=== PATIENT | female | born 1985 ===

== ENCOUNTER 2021-07-31 07:46 | Day surgery (SDC) | payer OTHER ==
[2021-07-31] VITALS (8 sets, daily range): BP systolic 120–154; BP diastolic 81–97; PULSE 89–96; TEMP 98.1–98.6
[~2021-07-31] VITALS: Ht 157.5 cm; Wt 125.5 kg
[2021-07-31] MEDS ORDERED: PROZAC 20MG20 MG PO (08:17)
[2021-07-31] MEDS ORDERED: ZITHROMAX500 M2 PO (08:18)
[2021-07-31] MEDS ORDERED: NORCO 325 MG-51 TAB PO (12:18)
--- NOTE | 2021-07-31 13:20 | NUR ---
PT TO BAY 1 PER CART FROM PACU. RECEIVED REPORT FROM [facility]. PT IS RESTING COMFORTABLY. DENIES ANY NEEDS AT THIS TIME. CALL LIGHT WITHIN REACH.
--- NOTE | 2021-07-31 13:35 | NUR ---
PT CONTINUES TO REST COMFORTABLY. DENIES ANY NEEDS AT THIS TIME.
--- NOTE | 2021-07-31 13:50 | NUR ---
PT IS TOLERATING WATER. CONTINUES TO REST COMFORTABLY. DENIES ANY OTHER ADDITIONAL NEEDS AT THIS TIME.
--- NOTE | 2021-07-31 14:05 | NUR ---
PT TOLERATING WATER. AT BEDSIDE. RESTING COMFORTABLY. DENIES ANY ADDITIONAL NEEDS AT THIS TIME.
--- NOTE | 2021-07-31 14:20 | NUR ---
PT CONTINUES TO TOLERATE WATER AND MUFFIN. DENIES ANY NEEDS. WILL CONTINUE TO MONITOR.
--- NOTE | 2021-07-31 14:45 | NUR ---
IV DC'D. TOLERATED WELL.
--- NOTE | 2021-07-31 15:00 | NUR ---
DISCHARGE EDUCATION COMPLETED WITH PT AND HER . VERBALIZED UNDERSTANDING OF HOME AND FOLLOW UP CARE. ALL QUESTIONS ANSWERED. DISCHARGE PAPERWORK GIVEN TO PT.
--- NOTE | 2021-07-31 15:15 | NUR ---
PT OFF UNIT PER WHEELCHAIR. PT DISCHARGE TO HOME WITH PER PERSONAL VEHICLE.
== END 2021-07-31 15:15 | disposition home or self-care (01) ==
LOC: SDCO 07:46
DX: K80.10 Calculus of gallbladder with chronic cholecystitis without obstruction (principal); E66.01 Morbid (severe) obesity due to excess calories; Z68.42 Body mass index [BMI] 45.0-49.9, adult
CPT/HCPCS: J0330; J0690; J1100; J1170; J1885; J2405; J2704; J3010; J7120